=== PATIENT | male | born 1970 | race Caucasian/White ===

== ENCOUNTER → 2017-09-30 16:53 | Outpatient (CLI) | payer OTHER, SELFPAY ==
--- NOTE | 2017-09-30 16:59 | CT_ITS ---
STUDY: CT CHEST WITH CONTRAST REASON FOR EXAM: Male, 47 years old. Left-sided pulmonary nodule. RADIATION DOSAGE (If Supplied By Facility): CTDIvol = ( 18.62 ) mGy, DLP = ( 1903.87 ) mGycm TECHNIQUE: Transaxial imaging was performed following intravenous administration of 100 ml of Isovue 300 contrast material. Multiplanar coronal and sagittal images were reformatted. Individualized dose optimization techniques were used for this CT. COMPARISON: Prior chest CT exam of November 22, 2015 FINDINGS: Stable large calcified granuloma of the left lower lobe. Stable pleural-based lingular nodule. Stable left lower lobe nodule juxtaposed the chronically thickened oblique fissure. Stable linear opacities in the posterior left lower lobe. Multiple stable 2 mm nodules of the right middle lung zone. Normal heart and pericardium. Normal mediastinum. Calcified left hilar lymph nodes. Normal enhanced pulmonary arteries. Normal aorta arch and descending thoracic aorta. Minor degenerative changes of the thoracic spine. Large hillary hernia. CT/Chest WITH Contrast IMPRESSION: Stable calcified granuloma of the left lower lobe. Stable noncalcified nodule of the anterior left lower lobe, stable areas of linear scarring in the lingula and left lower lobe. Several tiny noncalcified nodules of the right middle lobe are stable. No acute pulmonary findings or changes. Large hiatal hernia. Electronically Signed: Nasrin Alatorre MD at 19:52 EDT , Service support ,
--- NOTE | 2017-09-30 17:00 | CT_ITS ---
STUDY: CT ABDOMEN AND PELVIS WITHOUT CONTRAST REASON FOR EXAM: Male, 47 years old. Left-sided pain and hematuria. RADIATION DOSAGE (If Supplied By Facility): CTDIvol = ( 18.62 ) mGy, DLP = ( 1903.87 ) mGycm TECHNIQUE: Transaxial images were obtained from the dome of the diaphragm to the symphysis pubis without oral contrast, and without intravenous contrast. Sagittal and coronal images were reconstructed. Individualized dose optimization techniques were used for this CT. COMPARISON: Prior abdominal CT exam of July 17, 2015 FINDINGS: Mild fatty liver with focal sparing around the yrn hepatis. Contracted gallbladder. Normal spleen. Normal pancreas. Normal bilateral adrenal glands. 1 mm nonobstructing stone in the lower mid pole of the right kidney without hydronephrosis or ureteral stones. Normal left kidney. 1 mm nonobstructing stone of the upper pole without hydronephrosis or ureteral stones. Large hiatal hernia. Normal small intestine. Diverticulosis of the colon without evidence of acute diverticulitis. The appendix is visualized and appears normal. Mild calcified plaque of the aorta. Normal inferior vena cava. Normal retroperitoneum. Normal urinary bladder. Bilateral fatty inguinal hernias, left larger than right. Minimal fatty umbilical hernia. Normal osseous structures. CT/Abdomen/Pelvis without Cont IMPRESSION: Fatty liver with focal sparing around the yrn hepatis. 1 mm nonobstructing stone in the midpole of the right kidney without hydronephrosis or ureteral stones. 1 mm nonobstructing stone in the upper pole of the left kidney without hydronephrosis or ureteral stones. Unremarkable urinary bladder. No acute bowel related findings. Negative for evidence of obstruction, perforation or inflammatory bowel changes. Diverticulosis without evidence of acute diverticulitis. A normal appendix is identified. Fatty liver. Large hiatal hernia. Electronically Signed: Nasrin Alatorre MD at 20:01 EDT , Service support ,
== END ==
PROVIDERS: Family Provider Family Medicine; PCP Family Medicine; Visit Provider Family Medicine
DX: R10.9 Unspecified abdominal pain (principal); R91.1 Solitary pulmonary nodule
CPT/HCPCS: 71260; 74176; Q9967

== ENCOUNTER → 2018-04-27 12:19 | Outpatient (CLI) | payer OTHER, SELFPAY ==
[2018-04-27 13:53] LABS: BUN 12 mg/dL (7-18); Creatinine, Serum 1.27 mg/dL (0.70-1.30); EST Glomerular Filtration Rate 64 mL/min (>60); Est Glom Filt Rate - Afr Amer 78 mL/min (>60)
[2018-05-10 05:31] LABS: PSA,Total - Annual Screen 0.96 ng/mL (0.00-4.00)
== END ==
PROVIDERS: Family Provider Family Medicine; PCP Family Medicine; Referring Provider Urology; Visit Provider Urology
DX: N20.0 Calculus of kidney (principal); Z12.5 Encounter for screening for malignant neoplasm of prostate; E29.0 Testicular hyperfunction
CPT/HCPCS: 36415; 82565; 84153; 84403; 84520; G0103

== ENCOUNTER → 2019-02-27 07:33 | Outpatient (CLI) | payer OTHER, SELFPAY ==
--- NOTE | 2019-02-27 07:42 | CT_ITS ---
STUDY: CT ABDOMEN AND PELVIS WITHOUT CONTRAST REASON FOR EXAM: Male, 48 years old. Abdominal pain RADIATION DOSAGE (If Supplied By Facility): CTDIvol = ( 20.69 ) mGy, DLP = ( 1080.26 ) mGycm TECHNIQUE: Transaxial images were obtained from the dome of the diaphragm to the symphysis pubis without oral contrast, and without intravenous contrast. Sagittal and coronal images were reconstructed. Individualized dose optimization techniques were used for this CT. COMPARISON: 09/30/2017 FINDINGS: The visualized lung bases are unremarkable. The visualized portions of the heart are within normal limits. There is decreased attenuation of the liver consistent with steatosis. Normal gallbladder and extrahepatic biliary system. Normal spleen. Normal pancreas. Normal bilateral adrenal glands. 2 mm nonobstructing stone in the midsection right kidney. No hydronephrosis, ureteral stone, or ureteral dilatation. Normal left kidney. Moderate size hiatal hernia. Normal small intestine. There are multiple colonic diverticula consistent with diverticulosis. The appendix is visualized and appears normal. Normal abdominal aorta. Normal inferior vena cava. Normal retroperitoneum. Normal urinary bladder. Normal abdominal wall. Normal osseous structures. CT/Abdomen/Pelvis without Cont IMPRESSION: 1. 2 mm nonobstructing stone in the midsection right kidney. 2. Fatty infiltration of the liver. 3. Moderate-sized hiatal hernia. 4. Sigmoid diverticulosis without diverticulitis. Electronically Signed: Juvenal Tatum MD at 8:56 EDT Tel , Service support ,
== END ==
PROVIDERS: Family Provider Family Medicine; PCP Family Medicine; Referring Provider Family Medicine; Visit Provider Family Medicine
DX: N20.0 Calculus of kidney (principal)
CPT/HCPCS: 74176

== ENCOUNTER → 2019-06-21 13:14 | Outpatient (CLI) | payer OTHER, SELFPAY ==
--- NOTE | 2019-06-21 13:18 | VDLE_ITS ---
Reason For Study: Pain LLE Procedure LEFT Exam performed in department. GSV is normal. A preliminary report was called and/or faxed CFV is compressible, spontaneous, phasic, to Adriana. competent, and demonstrates normal augmentation. FV is compressible, spontaneous, phasic, competent and demonstrates normal augmentation. POP V is compressible, spontaneous, phasic, competent and demonstrates normal augmentation. T/P Trunk is compressible. PTV is compressible. LT PerV is compressible. Interpretation Summary Deep veins of the left lower extremity are patent and compressible segmentally. There is no evidence of left lower extremity deep vein thrombosis. Valvular competence appears intact within the proximal deep venous system on the left . The left great saphenous vein appears patent and compressible segmentally. Ordering Physician: Kailey Wright Referring Physician: Jonnathan Palma Performed By: Sierra Nesbitt RVT
== END ==
PROVIDERS: Family Provider Family Medicine; PCP Family Medicine; Referring Provider Physician Assistant; Visit Provider Physician Assistant
DX: M79.662 Pain in left lower leg (principal)
CPT/HCPCS: 93971

== ENCOUNTER → 2019-08-01 14:16 | Outpatient (CLI) | payer OTHER, SELFPAY ==
[2019-08-01 15:40] LABS: PSA,Total- Diagnostic 0.98 ng/mL (0.0-4.0); Prolactin 5.4 ng/mL
== END ==
LOC: LAB.FUTURE 14:19 → LAB 14:31
PROVIDERS: Family Provider Family Medicine; PCP Family Medicine; Referring Provider Urology; Visit Provider Urology
DX: E29.1 Testicular hypofunction (principal); N40.1 Benign prostatic hyperplasia with lower urinary tract symptoms
CPT/HCPCS: 36415; 84146; 84153; 84403

== ENCOUNTER → 2019-11-14 14:08 | Outpatient (CLI) | payer OTHER, SELFPAY ==
[2019-11-14 14:54] LABS: Absolute Lymphocyte Count 1.26 X10^3/uL (0.83-4.51); Absolute Neutrophil Count 3.1 X10^3/uL (2.0-7.7); Basophil# 0.03 X10^3/uL; Basophil% 0.6 % (0-1); Eosinophil# 0.06 X10^3/uL; Eosinophils% 1.2 % (0-5); Hematocrit 37.4 % (40-54); Hemoglobin 12.7 g/dL (13.0-16.5); Lymphocyte # 1.26 X10^3/ul (4.0); Lymphocyte % 25.6 % (19-41); Mean Corpuscular Hgb 30.6 pg (27.0-32.0); Mean Corpuscular Volume 90.1 fL (80-94); Mean Platelet Vol. 9.9 fl (6.2-12.0); Monocyte# 0.44 X10^3/uL; Monocyte% 8.9 % (0-10); NRBC Flagged by Analyzer 0 % (0-5); Neutrophil # 3.12 X10^3/uL (2.7-7.7); Neutrophil % 63.5 % (47-70); Platelet Count 266 K/mm3 (150-450); RBC Distribution Width CV 13.1 % (11.6-14.6); RBC Distribution Width SD 42.6 fl (35.1-43.9); Red Blood Count 4.15 M/mm3 (4.6-6.2); White Blood Count 4.9 K/mm3 (4.4-11.0)
[2019-11-14 15:36] LABS: PTHIN 44.3 pg/mL (18.4-80.1)
[2019-11-14 15:40] LABS: Vitamin B12 448 pg/mL (211-911); Vitamin D,25 Hydroxy 31.1 ng/mL
[2019-11-14 15:49] LABS: BUN 22 mg/dL (7-18); Creatinine, Serum 1.16 mg/dL (0.70-1.30); Glucose 133 mg/dL (74-106)
[2019-11-14 15:50] LABS: ALB/GLOB Ratio 1.3 RATIO (0.9-2.4); AST(SGOT) 24 U/L (15-37); Alanine Aminotransfer ALT/SGPT 22 U/L (16-61); Albumin, Serum 3.6 g/dL (3.2-5.0); Alkaline Phosphatase 71 U/L (45-117); Anion Gap 6 (5-15); Calcium,Total 8.3 mg/dL (8.5-10.1); Chloride 110 mmol/L (98-107); EST Glomerular Filtration Rate 71 mL/min (>60); Est Glom Filt Rate - Afr Amer 86 mL/min (>60); Ferritin 198 ng/mL (26-388); Globulin 2.8 g/dL (2.2-4.2); Iron 87 ug/dL (65-175); Iron Binding Capacity,Total 294 ug/dL (250-450); Potassium 4.3 mmol/L (3.5-5.1); Protein, Total 6.4 g/dL (6.4-8.2); Sodium Level 141 mmol/L (136-145)
[2019-11-19 06:54] LABS: Vitamin B1, Thiamine 155.6 nmol/L (66.5-200.0)
[2019-11-19 09:22] LABS: Transferrin 217 mg/dL (177-329); Vitamin A, Retinol 46.9 ug/dL (20.1-62.0)
== END ==
PROVIDERS: PCP Family Medicine
DX: E55.9 Vitamin D deficiency, unspecified (principal); D53.9 Nutritional anemia, unspecified; Z98.84 Bariatric surgery status; E66.9 Obesity, unspecified; Z71.89 Other specified counseling; Z71.3 Dietary counseling and surveillance; Z09 Encounter for follow-up examination after completed treatment for conditions other than malignant neoplasm
CPT/HCPCS: 36415; 80053; 82306; 82607; 82728; 82746; 83540; 83550; 83970; 84425; 84466; 84590; 85025

== ENCOUNTER → 2020-01-01 11:57 | Outpatient (CLI) | payer OTHER, SELFPAY | PROVIDERS: PCP Family Medicine; Visit Provider Internal Medicine Gastroenterology | DX: Z11.59 Encounter for screening for other viral diseases (principal) | CPT/HCPCS: 87635; G2023; U0003 ==

== ENCOUNTER → 2020-05-22 12:38 | Outpatient (CLI) | payer OTHER, SELFPAY ==
[2020-05-22 13:20] LABS: Absolute Lymphocyte Count 1.07 X10^3/uL (0.83-4.51); Absolute Neutrophil Count 3.4 X10^3/uL (2.0-7.7); Basophil# 0.02 X10^3/uL; Basophil% 0.4 % (0-1); Eosinophil# 0.06 X10^3/uL; Eosinophils% 1.2 % (0-5); Hematocrit 41.9 % (40-54); Hemoglobin 14.5 g/dL (13.0-16.5); Lymphocyte # 1.07 X10^3/ul (4.0); Lymphocyte % 22.2 % (19-41); Mean Corp Hgb Conc 34.6 g/dL (32-36); Mean Corpuscular Hgb 31.1 pg (27.0-32.0); Mean Corpuscular Volume 89.9 fL (80-94); Mean Platelet Vol. 9.6 fl (6.2-12.0); Monocyte# 0.29 X10^3/uL; NRBC Flagged by Analyzer 0 % (0-5); Neutrophil # 3.37 X10^3/uL (2.7-7.7); Platelet Count 262 K/mm3 (150-450); RBC Distribution Width CV 12.4 % (11.6-14.6); RBC Distribution Width SD 40.3 fl (35.1-43.9); Red Blood Count 4.66 M/mm3 (4.6-6.2); White Blood Count 4.8 K/mm3 (4.4-11.0)
[2020-05-22 13:45] LABS: PTHIN 44.6 pg/mL (18.4-80.1)
[2020-05-22 13:50] LABS: Vitamin B12 458 pg/mL (211-911); Vitamin D,25 Hydroxy 25.9 ng/mL
[2020-05-22 14:24] LABS: ALB/GLOB Ratio 1.4 RATIO (0.9-2.4); AST(SGOT) 20 U/L (15-37); Alanine Aminotransfer ALT/SGPT 28 U/L (16-61); Albumin, Serum 4.1 g/dL (3.2-5.0); Alkaline Phosphatase 85 U/L (45-117); Anion Gap 3 (5-15); BUN 17 mg/dL (7-18); BUN/Creat Ratio 16.5 RATIO (10-20); Bilirubin, Direct 0.31 mg/dL (0.00-0.30); Calcium,Total 9.2 mg/dL (8.5-10.1); Chloride 107 mmol/L (98-107); Cholesterol 134 mg/dL (200); Creatinine, Serum 1.03 mg/dL (0.70-1.30); EST Glomerular Filtration Rate 81 mL/min (>60); Est Glom Filt Rate - Afr Amer 98 mL/min (>60); Ferritin 186 ng/mL (26-388); Glucose 102 mg/dL (74-106); High Density Lipoprotein 45 mg/dL; Iron 73 ug/dL (65-175); Iron Binding Capacity,Total 329 ug/dL (250-450); Potassium 4.3 mmol/L (3.5-5.1); Protein, Total 7.1 g/dL (6.4-8.2); Sodium Level 139 mmol/L (136-145); Triglycerides 66 mg/dL; Very Low Density Lipoprotein 13 mg/dL (5-40)
[2020-05-31 12:11] LABS: Vitamin B1, Thiamine 118.2 nmol/L (66.5-200.0)
[2020-05-31 16:40] LABS: Transferrin 248 mg/dL (177-329); Vitamin A, Retinol 45.3 ug/dL (20.1-62.0)
== END ==
PROVIDERS: PCP Family Medicine
DX: R19.7 Diarrhea, unspecified (principal)
CPT/HCPCS: 36415; 80048; 80061; 80076; 82306; 82607; 82728; 82746; 83036; 83540; 83550; 83970; 84156; 84403; 84425; 84443; 84466; 84590; 85025

== ENCOUNTER 2020-09-07 18:57 | Emergency (ER) | payer OTHER, SELFPAY ==
[2020-09-07 18:58] VITALS: BP 147/96; PULSE 96; RESP 18; TEMP 36.6; O2SAT 98; BMI 30.5
[2020-09-07 19:06] VITALS: O2SAT 98
--- NOTE | 2020-09-07 19:14 | EKG12_ITS ---
Test Reason : CP Blood Pressure : / mmHG Vent. Rate : 090 BPM Atrial Rate : 090 BPM P-R Int : 156 ms QRS Dur : 078 ms QT Int : 356 ms P-R-T Axes : 012 015 008 degrees QTc Int : 435 ms Normal sinus rhythm Normal ECG Confirmed by ABDIRIZAK SAVAGE, JOSEPH ([id number]), science editor MELISSA SHEN ([id number]) on 09/09/2020 10:08:46 AM Referred By: Confirmed By:JOSEPH REVELES MD
--- NOTE | 2020-09-07 19:15 | ED.DCSUM_ITS ---
History of Present Illness Chief Complaint: Shortness of Breath Informant: Patient Narrative: 50-year-old male presenting to the emergency department with a left chest ache, cough with occasional sputum production, and mild dyspnea. States he has felt it for the past several days. He has had some sores in his mouth that have been bothering him. He states he has had malaise slight headache loose stool. No fevers. He has no known lung conditions but does state that about 6 years ago he had a gastric bypass surgery that unfortunately resulted in having a chest tube for 2 weeks. During that timeframe he reportedly also had a cardiac arrest and has had normal follow-up with cardiology. He is a non-smoker. His has been ill but tested negative for Covid. Past Medical History - Allergies and Home Meds Allergies/Adverse Reactions: Allergies No Known Allergies Allergy (Verified 09/07/20 19:00) Primary Care Physician: Jonnathan Palma MD [Primary Care Provider] - As Needed Past Medical History: - - Insomnia hiatal hernia prior cardiac arrest Surgical History: gastric bypass, - - Hiatal hernia repair Lives: Spouse/ Significant Other Smoking Status: Never smoker Alcohol: None Drugs: None Review of Systems General: Reports: Malaise. Denies: Chills, Fever, Sweats Eyes: Denies: Visual changes - bilaterally, Diplopia ENT: Denies: Rhinorrhea, Sore throat Cardiovascular: Reports: Chest pain. Denies: Palpitations Respiratory: Reports: Dyspnea, Cough, Sputum. Denies: Dyspnea on exertion Gastrointestinal: Reports: Diarrhea. Denies: Abdominal pain, Nausea, Vomiting, Melena, Hematochezia Genitourinary: Denies: Dysuria, Hematuria, Frequency Musculoskeletal: Denies: Back pain, Extremity Pain Skin: Denies: Rash, Wounds Neurological: Reports: Headache. Denies: Weakness, Numbness Physical Exam Vital Signs/Narrative: Vital Signs Temp Pulse Resp BP Pulse Ox 09/07/20 18:58 97.9 F 96 18 147/96 H 98 Inital Vital Signs reviewed: Yes General: Well nourished, Well developed, No Acute Distress Head: Normocephalic, Atraumatic Eyes: Perrl, EOMI ENT: Moist mucous membranes, No rhinorrhea Neck: Supple, Nontender Cardiovascular: Regular rate, Regular rhythm, No murmurs Respiratory: No distress, CTA bilaterally, Chest nontender Abdomen: Soft, Nontender, Nondistended, Normal bowel sounds Back: Nontender, Normal Inspection Extremities: Nontender, No edema Skin: Normal color, No rash Neurological: Alert, Oriented x3, Cranial nerves II-XII grossly intact, Normal Strength, Normal Sensation Psychological: Normal affect, Normal Mood Diagnostic/Tx/Re-eval Clinical Impression(s) from Imaging Studies Chest X-Ray 09/07/20 19:30 IMPRESSION: No acute cardiopulmonary findings or changes. Stigmata of old granulomatous disease. Electronically Signed: Nasrin Alatorre MD at 19:50 EST , Service support , Laboratory Last Values WBC 3.8 K/mm3 (4.4-11.0) L 09/07/20 19:15 RBC 4.31 M/mm3 (4.6-6.2) L 09/07/20 19:15 Hgb 13.6 g/dL (13.0-16.5) 09/07/20 19:15 Hct 38.2 % (40-54) L 09/07/20 19:15 MCV 88.6 fL (80-94) 09/07/20 19:15 MCH 31.6 pg (27.0-32.0) 09/07/20 19:15 MCHC 35.6 g/dL (32-36) 09/07/20 19:15 RDW Std Deviation 39.5 fl (35.1-43.9) 09/07/20 19:15 RDW Coeff of Christina 12.1 % (11.6-14.6) 09/07/20 19:15 Plt Count 167 K/mm3 (150-450) 09/07/20 19:15 MPV 9.7 fl (6.2-12.0) 09/07/20 19:15 Immature Gran % (Auto) 0.000 % (0.0-0.9) 09/07/20 19:15 Neut % (Auto) 74.1 % (47-70) H 09/07/20 19:15 Lymph % (Auto) 15.4 % (19-41) L 09/07/20 19:15 [place] % (Auto) 10.2 % (0-10) H 09/07/20 19:15 Eos % (Auto) 0.0 % (0-5) 09/07/20 19:15 Baso % (Auto) 0.3 % (0-1) 09/07/20 19:15 Absolute Neuts (auto) 2.9 X10^3/uL (2.0-7.7) 09/07/20 19:15 Absolute Lymphs (auto) 0.59 X10^3/uL (0.83-4.51) L 09/07/20 19:15 Nucleated RBC % 0 % (0-5) 09/07/20 19:15 Differential Comment SCANNED 09/07/20 19:15 Diff Path Review November09/07/20 19:15 D-Dimer Quant (PE/DVT) < 0.27 FEU/ug/m (0.27-0.49) L 09/07/20 19:15 Sodium 137 mmol/L (136-145) 09/07/20 19:15 Potassium 3.9 mmol/L (3.5-5.1) 09/07/20 19:15 Chloride 103 mmol/L (98-107) 09/07/20 19:15 Carbon Dioxide 28.0 mmol/L (21.0-32.0) 09/07/20 19:15 Anion Gap 6 (5-15) 09/07/20 19:15 BUN 24 mg/dL (7-18) H 09/07/20 19:15 Creatinine 1.15 mg/dL (0.70-1.30) 09/07/20 19:15 Estim Creat Clear Calc 71.05 ml/min 09/07/20 19:15 Est GFR (MDRD) Af Amer 86 mL/min (>60) 09/07/20 19:15 Est GFR (MDRD) Non-Af 71 mL/min (>60) 09/07/20 19:15 BUN/Creatinine Ratio 20.9 RATIO (10-20) H 09/07/20 19:15 Glucose 108 mg/dL (74-106) H 09/07/20 19:15 Lactic Acid 1.0 mmol/L (0.4-1.9) 09/07/20 19:15 Calcium 8.3 mg/dL (8.5-10.1) L 09/07/20 19:15 Total Bilirubin 0.70 mg/dL (0.20-1.00) 09/07/20 19:15 AST 27 U/L (15-37) 09/07/20 19:15 ALT 21 U/L (16-61) 09/07/20 19:15 Alkaline Phosphatase 86 U/L (45-117) 09/07/20 19:15 Troponin I 0.022 ng/mL (<0.045) 09/07/20 19:15 Total Protein 7.0 g/dL (6.4-8.2) 09/07/20 19:15 Albumin 3.8 g/dL (3.2-5.0) 09/07/20 19:15 Globulin 3.2 g/dL (2.2-4.2) 09/07/20 19:15 Albumin/Globulin Ratio 1.2 RATIO (0.9-2.4) 09/07/20 19:15 - EKG Initial EKG Interpretation: Sinus Rhythm - EKG demonstrates a normal sinus rhythm at a rate of 90 without ectopy or concerning features of ACS. - Medical Decision Making Patient is Covid POSITIVE. Troponin negative and EKG shows no ACS features. He has a slight leukopenia consistent with Covid 19. Patient chest x-ray shows no obvious infiltrative changes. His vital signs are normal with a pulse ox of 97%. I believe the patient can be discharged home. I am starting him on Decadron and albuterol MDI with spacer. The patient will receive his first dose here. In reviewing the inclusion exclusion criteria for antibody infusion it appears that he does not currently qualify. ED Disposition - Plan for ED Patient: Disposition: Home or Assisted Living Diagnosis: COVID-19, Chest pain, Dyspnea Instructions: Coronavirus Disease 2019 (COVID-19): Caring for Yourself or Others Prescriptions: Dexamethasone [Decadron] 6 mg PO DAILY 4 Days #4 tab Prescription Printed Referrals: Jonnathan Palma MD [Primary Care Provider] - As Needed
--- NOTE | 2020-09-07 19:30 | RAD_ITS ---
STUDY: X-RAY CHEST REASON FOR EXAM: Male, 50 years old. cough TECHNIQUE: 1 view apical lordotic COMPARISON: Prior chest radiograph of 05/24/[address] exam of 09/30/2017 FINDINGS: The lungs are clear and expanded. Large calcified granuloma left lower lobe. There is no demonstrated pleural abnormality. Normal size heart. Normal mediastinum and hillary. Normal visualized pulmonary arteries. Normal visualized aortic arch and descending thoracic aorta. Normal visualized thoracic spine. Normal visualized ribs, clavicles, and shoulders. There is no demonstrated abnormality of the visualized soft tissue structures of the upper abdomen. RAD/Chest 1 View (Portable) IMPRESSION: No acute cardiopulmonary findings or changes. Stigmata of old granulomatous disease. Electronically Signed: Nasrin Alatorre MD at 19:50 EST , Service support ,
[2020-09-07 19:35] LABS: Absolute Lymphocyte Count 0.59 X10^3/uL (0.83-4.51); Absolute Neutrophil Count 2.9 X10^3/uL (2.0-7.7); Basophil# 0.01 X10^3/uL; Basophil% 0.3 % (0-1); Hematocrit 38.2 % (40-54); Hemoglobin 13.6 g/dL (13.0-16.5); Lymphocyte # 0.59 X10^3/ul (4.0); Lymphocyte % 15.4 % (19-41); Mean Corp Hgb Conc 35.6 g/dL (32-36); Mean Corpuscular Hgb 31.6 pg (27.0-32.0); Mean Corpuscular Volume 88.6 fL (80-94); Mean Platelet Vol. 9.7 fl (6.2-12.0); Monocyte# 0.39 X10^3/uL; Monocyte% 10.2 % (0-10); NRBC Flagged by Analyzer 0 % (0-5); Neutrophil # 2.85 X10^3/uL (2.7-7.7); Neutrophil % 74.1 % (47-70); POSITIVE DIFFERENTIAL YES; Platelet Count 167 K/mm3 (150-450); RBC Distribution Width CV 12.1 % (11.6-14.6); RBC Distribution Width SD 39.5 fl (35.1-43.9); Red Blood Count 4.31 M/mm3 (4.6-6.2); White Blood Count 3.8 K/mm3 (4.4-11.0)
[2020-09-07 19:39] LABS: Differential Indicated SCAN CRITERIA MET
[2020-09-07 19:46] LABS: D-Dimer Quantitative (DVT/PE) < 0.27 FEU/ug/m (0.27-0.49)
[2020-09-07 19:50] LABS: ALB/GLOB Ratio 1.2 RATIO (0.9-2.4); AST(SGOT) 27 U/L (15-37); Alanine Aminotransfer ALT/SGPT 21 U/L (16-61); Albumin, Serum 3.8 g/dL (3.2-5.0); Alkaline Phosphatase 86 U/L (45-117); Anion Gap 6 (5-15); BUN 24 mg/dL (7-18); BUN/Creat Ratio 20.9 RATIO (10-20); Calcium,Total 8.3 mg/dL (8.5-10.1); Chloride 103 mmol/L (98-107); Creatinine, Serum 1.15 mg/dL (0.70-1.30); EST Glomerular Filtration Rate 71 mL/min (>60); Est Glom Filt Rate - Afr Amer 86 mL/min (>60); Estimated Creatinine Clearance 71.05 ml/min; Globulin 3.2 g/dL (2.2-4.2); Glucose 108 mg/dL (74-106); Potassium 3.9 mmol/L (3.5-5.1); Sodium Level 137 mmol/L (136-145)
[2020-09-07 20:00] VITALS: BP 143/96; PULSE 89; RESP 12; TEMP 36.6; O2SAT 96
[2020-09-07 20:06] LABS: Differential Comment SCANNED
[2020-09-07 21:09] VITALS: BP 125/78; PULSE 82; RESP 14; O2SAT 96
[2020-09-07] MEDS: dexAMETHasone 4 MG Tablet 6 MG PO (21:10)
[2020-09-07] MEDS: INHALER, ASSIST DEVICES 1 EACH SPACER INHALATION (21:12)
[2020-09-09 14:45] LABS: Pathologist Review Reviewed
== END 2020-09-07 21:28 | disposition home or self-care (01) ==
PROVIDERS: Emergency Provider Emergency Medicine; PCP Family Medicine
DX: U07.1 COVID-19 (principal); R07.9 Chest pain, unspecified; R06.00 Dyspnea, unspecified; Z86.74 Personal history of sudden cardiac arrest; Z98.84 Bariatric surgery status
CPT/HCPCS: 71045; 80053; 83605; 84484; 85025; 85379; 87040; 87426; 93005; 99285; A4216

== ENCOUNTER → 2020-09-30 09:21 | Outpatient (CLI) | payer OTHER, SELFPAY ==
[2020-09-07 18:58] VITALS: BMI 30.5
[2020-09-30 09:38] LABS: Hematocrit 39.7 % (40-54); Hemoglobin 13.2 g/dL (13.0-16.5); Mean Corp Hgb Conc 33.2 g/dL (32-36); Mean Corpuscular Hgb 30.8 pg (27.0-32.0); Mean Corpuscular Volume 92.5 fL (80-94); Mean Platelet Vol. 9.2 fl (6.2-12.0); Platelet Count 260 K/mm3 (150-450); RBC Distribution Width CV 13.2 % (11.6-14.6); RBC Distribution Width SD 44.1 fl (35.1-43.9); Red Blood Count 4.29 M/mm3 (4.6-6.2); White Blood Count 3.7 K/mm3 (4.4-11.0)
[2020-09-30 10:05] LABS: Anion Gap 5 (5-15); BUN 17 mg/dL (7-18); BUN/Creat Ratio 15.5 RATIO (10-20); Calcium,Total 9.1 mg/dL (8.5-10.1); Chloride 105 mmol/L (98-107); EST Glomerular Filtration Rate 75 mL/min (>60); Est Glom Filt Rate - Afr Amer 91 mL/min (>60); Glucose 103 mg/dL (74-106); PSA,Total - Annual Screen 1.14 ng/mL (0.00-4.00); Sodium Level 141 mmol/L (136-145)
== END ==
PROVIDERS: PCP Family Medicine; Referring Provider Urology; Visit Provider Urology
DX: E29.1 Testicular hypofunction (principal)
CPT/HCPCS: 36415; 80048; 84153; 84403; 85027; G0103

== ENCOUNTER 2020-11-17 10:18 | Emergency (ER) | payer OTHER, SELFPAY ==
[2020-11-17 10:20] VITALS: BP 164/89; PULSE 60; RESP 17; TEMP 36.7; O2SAT 98; BMI 30.2
--- NOTE | 2020-11-17 10:34 | CT_ITS ---
STUDY: CT ABDOMEN AND PELVIS WITHOUT CONTRAST REASON FOR EXAM: Male, 50 years old. Kidney Stone RADIATION DOSAGE (If Supplied By Facility): CTDIvol = ( 9.12 ) mGy, DLP = ( 453.37 ) mGycm TECHNIQUE: Transaxial images were obtained from the dome of the diaphragm to the symphysis pubis without oral contrast, and without intravenous contrast. Sagittal and coronal images were reconstructed. Individualized dose optimization techniques were used for this CT. COMPARISON: 02/27/2019 FINDINGS: The visualized lung bases are unremarkable. The visualized portions of the heart are within normal limits. Normal liver. Normal gallbladder and extrahepatic biliary system. Normal spleen. Normal pancreas. Normal bilateral adrenal glands. 3 mm obstructing stone at the right ureterovesical junction with moderate ureteral dilatation, hydronephrosis, and perinephric edema. Normal left kidney. Status post gastric surgery, possibly gastric bypass per Normal small intestine. There are multiple colonic diverticula consistent with diverticulosis. The appendix is visualized and appears normal. Normal abdominal aorta. Normal inferior vena cava. Normal retroperitoneum. Normal urinary bladder. There is a small umbilical hernia containing fat. Normal osseous structures. CT/Abdomen/Pelvis without Cont IMPRESSION: 3 mm obstructing stone of the right ureteral vesicle junction with moderate ureteral dilatation and hydronephrosis. Electronically Signed: Juvenal Tatum MD at 11:26 EDT Tel , Service support ,
--- NOTE | 2020-11-17 10:34 | ED.VIS.GI ---
HPI HPI - GI History of Present Illness Chief Complaint: Abd Pain Informant: patient Abdominal Pain/Flank Pain Onset: Today Narrative Narrative: 50-year-old male presenting with right flank pain. Patient states this started this morning. He has pain in his right low back and right lower quadrant. He states it occasionally radiates to his testicle. He denies dysuria or hematuria. He complains of nausea with no vomiting. Denies fever. He states he had Covid in August and had low blood counts at that time. He is awaiting recheck for this. Denies other complaints. Prior similar symptoms: Yes Recent Illness/Hospitalization: No PFSH PFSH Home Medications ropinirole 0.25 mg PO QHS 09/07/20 [History Last Taken Unknown] tadalafil 5 mg PO DAILY 09/07/20 [History Last Taken Unknown] testosterone 4 pump TOPICAL DAILY 09/07/20 [History Last Taken Unknown] zolpidem 12.5 mg PO QHS 09/07/20 [History Last Taken Unknown] hydrocodone-acetaminophen 1 tab PO Q6H PRN PRN 3 Days #10 tablet 11/17/20 [Rx Last Taken Unknown] ondansetron 4 mg PO Q8H PRN PRN #10 tab 11/17/20 [Rx Last Taken Unknown] Allergy/AdvReac Type Severity Reaction Status Date / Time No Known Allergies Allergy Verified 11/17/20 10:19 Social History Smoking Status: Never smoker ROS ROS ED Constitutional Constitutional ED: Denies fever(s) Eyes Eyes: Denies change in vision ENT ENT ED: Denies rhinorrhea or sore throat Cardiovascular Cardiovascular: Denies chest pain or palpitations Respiratory/Chest Respiratory/Chest: Denies cough or dyspnea Gastrointestinal Gastrointestinal: Reports abdominal pain and nausea; Denies diarrhea or vomiting Genitourinary Genitourinary ED: Denies dysuria or hematuria Musculoskeletal Musculoskeletal: Denies myalgias Integumentary Denies rash Neurologic Neurologic: Denies headache(s) EXAM Physical Exam Const Vital Signs: 11/17/20 10:20 Temperature 98.1 F Temperature Source Oral Pulse Rate 60 Respiratory Rate 17 Blood Pressure 164/89 H Blood Pressure Mean 114 Pulse Ox 98 Oxygen Delivery Method Room Air Positive well nourished and well developed General Appearance ED: well developed HEENT Reports normocephalic and head/scalp atraumatic Eyes PERRL and EOMs intact bilaterally Neck supple General: Negative for tenderness Chest Wall inspection of chest normal Resp normal respiratory effort and clear to auscultation bilaterally Cardio regular rate and regular rhythm GI non-distended GI Narrative: Mild right lower quadrant tenderness with no guarding or rebound Palpation: soft; Negative for guarding or rebound tenderness present no CVA tenderness Narrative: No testicular tenderness. Normal lie Back/Spine no CVA tenderness Extremity normal to inspection Neuro oriented x3 Sensorium / Orientation: alert Psych mental status grossly normal MDM MDM MDM Narrative Medical decision making narrative: Patient was given morphine, Zofran, IV fluids. CT flank shows 3 mm stone at the right UVJ. On reevaluation, patient is resting comfortably. He is given prescription for [place] and Zofran. Advised to follow-up with Dr. Barahona. Advised return to ED for worsening complaints. Lab Data Attestation: I reviewed the patient's lab results. Labs: Laboratory Results - last 24 hr 11/17/20 11/17/20 11/17/20 10:44 10:49 10:49 WBC 10.2 RBC 4.58 L Hgb 13.8 Hct 40.7 MCV 88.9 MCH 30.1 MCHC 33.9 RDW Std Deviation 41.7 RDW Coeff of Christina 13.1 Plt Count 226 MPV 9.4 Immature Gran % (Auto) 0.400 Neut % (Auto) 88.7 H Lymph % (Auto) 5.3 L [place] % (Auto) 5.4 Eos % (Auto) 0.1 Baso % (Auto) 0.1 Absolute Neuts (auto) 9.1 H Absolute Lymphs (auto) 0.54 L Nucleated RBC % 0 Differential Comment SCANNED Sodium 141 Potassium 4.3 Chloride 106 Carbon Dioxide 29.0 Anion Gap 6 BUN 26 H Creatinine 1.32 H Estim Creat Clear Calc 61.90 Est GFR (MDRD) Af Amer 74 Est GFR (MDRD) Non-Af 61 BUN/Creatinine Ratio 19.7 Glucose 134 H Calcium 9.0 Urine Color Yellow Urine Clarity Clear Urine pH 6.5 Ur Specific [place] 1.015 Urine Protein 15 H Urine Glucose (UA) Normal Urine Ketones Negative Urine Occult Blood 150 H Urine Nitrite Negative Urine Bilirubin Negative Urine Urobilinogen Normal Ur Leukocyte Esterase 25 H Urine RBC 25-50 SEEN Urine WBC 0-5 SEEN Ur Squamous Epith Cells 0 SEEN Urine Bacteria 0 SEEN Hyaline Casts 0-5 SEEN Urine Mucus 1+ Radiography Diagnostic Testing: Radiology Impression Abdomen/Pelvis CT 11/17/20 10:34 IMPRESSION: 3 mm obstructing stone of the right ureteral vesicle junction with moderate ureteral dilatation and hydronephrosis. Electronically Signed: Juvenal Tatum MD at 11:26 EDT Tel , Service support , Discharge Plan Triage Chief Complaint: Abd Pain ED Provider: Lelia Iverson Dx/Rx/DC Orders Clinical Impression: Urolithiasis Instructions: ED Kidney Stone w/ Colic Prescriptions: New hydrocodone-acetaminophen [hydrocodone-acetaminophen] 1 TABLET tablet 1 tab PO Q6H PRN PRN (Reason: Pain) 3 Days Qty: 10 RF: 0 ondansetron [ondansetron] 4 MG tablet 4 mg PO Q8H PRN PRN (Reason: Nausea) Qty: 10 RF: 0 No Action ropinirole 0.25 MG tablet 0.25 mg PO QHS RF: 0 tadalafil 5 MG tablet 5 mg PO DAILY RF: 0 zolpidem 12.5 MG tablet,ext release multiphase 12.5 mg PO QHS RF: 0 testosterone 75 GM gel in metered-dose pump 4 pump TOPICAL DAILY RF: 0 Primary Care Provider: Jonnathan Palma Referrals: Jonnathan Palma MD [Primary Care Provider] - Marcos Barahona MD [STAFF PHYSICIAN] - Disposition Disposition: Home, self care
[2020-11-17] MEDS: Morphine 4 MG/ML Syringe IV (10:49)
[2020-11-17] MEDS: Ondansetron 4 MG/2 ML Vial IV (10:49)
[2020-11-17 10:58] LABS: Bacteria 0 SEEN /hpf (None Seen); Squamous Epithelial Cells - UA 0 SEEN /hpf (0-5)
[2020-11-17 11:03] LABS: Absolute Lymphocyte Count 0.54 X10^3/uL (0.83-4.51); Absolute Neutrophil Count 9.1 X10^3/uL (2.0-7.7); Basophil# 0.01 X10^3/uL; Basophil% 0.1 % (0-1); Eosinophil# 0.01 X10^3/uL; Eosinophils% 0.1 % (0-5); Hematocrit 40.7 % (40-54); Hemoglobin 13.8 g/dL (13.0-16.5); Lymphocyte # 0.54 X10^3/ul (0.83-4.51); Lymphocyte % 5.3 % (19-41); Mean Corp Hgb Conc 33.9 g/dL (32-36); Mean Corpuscular Hgb 30.1 pg (27.0-32.0); Mean Corpuscular Volume 88.9 fL (80-94); Mean Platelet Vol. 9.4 fl (6.2-12.0); Monocyte# 0.55 X10^3/uL; Monocyte% 5.4 % (0-10); NRBC Flagged by Analyzer 0 % (0-5); Neutrophil # 9.05 X10^3/uL (2.7-7.7); Neutrophil % 88.7 % (47-70); POSITIVE DIFFERENTIAL YES; Platelet Count 226 K/mm3 (150-450); RBC Distribution Width CV 13.1 % (11.6-14.6); RBC Distribution Width SD 41.7 fl (35.1-43.9); Red Blood Count 4.58 M/mm3 (4.6-6.2); White Blood Count 10.2 K/mm3 (4.4-11.0)
[2020-11-17 11:10] LABS: Color, Urine Yellow (Yellow); Glucose, Dipstick Normal (Normal); Ketone-Dipstick Negative (Negative); Leukocyte Esterase-Dipstick 25 /ul (Negative); Nitrite-Dipstick Negative (Negative); Occult Blood-Urine 150 /ul (Negative); Protein-Dipstick 15 mg/dl (Negative); Specific Gravity, Urine 1.015 (1.002-1.030); Urine Bilirubin Dipstick Negative (Negative); Urine Clarity Clear (Clear); Urine Urobilinogen Normal (Normal); Urine pH 6.5 (5.0 - 8.0)
[2020-11-17 11:10] LABS: Differential Indicated SCAN CRITERIA MET
[2020-11-17 11:13] LABS: Anion Gap 6 (5-15); BUN 26 mg/dL (7-18); BUN/Creat Ratio 19.7 RATIO (10-20); Chloride 106 mmol/L (98-107); Creatinine, Serum 1.32 mg/dL (0.70-1.30); EST Glomerular Filtration Rate 61 mL/min (>60); Est Glom Filt Rate - Afr Amer 74 mL/min (>60); Glucose 134 mg/dL (74-106); Potassium 4.3 mmol/L (3.5-5.1); Sodium Level 141 mmol/L (136-145)
[2020-11-17] MEDS: 0.9% Normal Saline 1,000 ML 999 ML IV (11:38)
[2020-11-17 11:48] LABS: Differential Comment SCANNED
[2020-11-17 11:55] LABS: Hyaline Cast 0-5 SEEN /lpf (0-5); Mucous, Urine 1+ /hpf (<or=2+); Red Blood Cells-Urine 25-50 SEEN /hpf (0-5); White Blood Cells 0-5 SEEN /hpf (0-5)
[2020-11-17 12:31] VITALS: BP 158/93; PULSE 61; RESP 18; O2SAT 100
== END 2020-11-17 12:33 | disposition home or self-care (01) ==
PROVIDERS: Emergency Provider Emergency Medicine; PCP Family Medicine
DX: N20.9 Urinary calculus, unspecified (principal)
CPT/HCPCS: 74176; 80048; 81001; 85025; 96374; 96375; 99284; J7030; A4216; J2405

== ENCOUNTER → 2020-12-16 15:44 | Outpatient (CLI) | payer OTHER, SELFPAY ==
[2020-11-17 10:20] VITALS: BMI 30.2
[2020-12-16 17:29] LABS: Absolute Lymphocyte Count 1.25 X10^3/uL (0.83-4.51); Absolute Neutrophil Count 4.8 X10^3/uL (2.0-7.7); Basophil# 0.03 X10^3/uL; Basophil% 0.4 % (0-1); Eosinophil# 0.12 X10^3/uL; Eosinophils% 1.8 % (0-5); Hemoglobin 13.5 g/dL (13.0-16.5); Lymphocyte # 1.25 X10^3/ul (0.83-4.51); Lymphocyte % 18.5 % (19-41); Mean Corp Hgb Conc 34.6 g/dL (32-36); Mean Corpuscular Hgb 30.3 pg (27.0-32.0); Mean Corpuscular Volume 87.6 fL (80-94); Mean Platelet Vol. 10.3 fl (6.2-12.0); Monocyte# 0.53 X10^3/uL; Monocyte% 7.9 % (0-10); NRBC Flagged by Analyzer 0 % (0-5); Neutrophil % 71.1 % (47-70); Platelet Count 233 K/mm3 (150-450); RBC Distribution Width CV 12.7 % (11.6-14.6); RBC Distribution Width SD 40.4 fl (35.1-43.9); Red Blood Count 4.45 M/mm3 (4.6-6.2); White Blood Count 6.8 K/mm3 (4.4-11.0)
== END ==
PROVIDERS: PCP Family Medicine; Referring Provider Family Medicine; Visit Provider Family Medicine
DX: D72.810 Lymphocytopenia (principal)
CPT/HCPCS: 36415; 85025

== ENCOUNTER → 2021-05-19 11:18 | Outpatient (CLI) | payer OTHER, SELFPAY ==
[2021-05-19 12:02] LABS: Absolute Lymphocyte Count 0.91 X10^3/uL (0.83-4.51); Basophil# 0.03 X10^3/uL; Basophil% 0.7 % (0-1); Eosinophils% 2.3 % (0-5); Hematocrit 39.4 % (40-54); Hemoglobin 13.5 g/dL (13.0-16.5); Lymphocyte # 0.91 X10^3/ul (0.83-4.51); Lymphocyte % 20.6 % (19-41); Mean Corp Hgb Conc 34.3 g/dL (32-36); Mean Corpuscular Hgb 30.5 pg (27.0-32.0); Mean Corpuscular Volume 88.9 fL (80-94); Mean Platelet Vol. 9.7 fl (6.2-12.0); Monocyte# 0.33 X10^3/uL; Monocyte% 7.5 % (0-10); NRBC Flagged by Analyzer 0 % (0-5); Neutrophil # 3.03 X10^3/uL (2.7-7.7); Neutrophil % 68.7 % (47-70); Platelet Count 278 K/mm3 (150-450); RBC Distribution Width CV 12.8 % (11.6-14.6); RBC Distribution Width SD 41.3 fl (35.1-43.9); Red Blood Count 4.43 M/mm3 (4.6-6.2); White Blood Count 4.4 K/mm3 (4.4-11.0)
[2021-05-19 12:35] LABS: Vitamin B12 489 pg/mL (211-911); Vitamin D,25 Hydroxy 53.8 ng/mL
[2021-05-19 12:37] LABS: PTHIN 36.9 pg/mL (18.4-80.1)
[2021-05-19 13:17] LABS: ALB/GLOB Ratio 1.2 RATIO (0.9-2.4); AST(SGOT) 21 U/L (15-37); Alanine Aminotransfer ALT/SGPT 21 U/L (16-61); Albumin, Serum 3.7 g/dL (3.2-5.0); Alkaline Phosphatase 80 U/L (45-117); Anion Gap 5 (5-15); BUN 18 mg/dL (7-18); BUN/Creat Ratio 18.1 RATIO (10-20); Bilirubin, Direct 0.24 mg/dL (0.00-0.30); Chloride 109 mmol/L (98-107); EST Glomerular Filtration Rate 84 mL/min (>60); Est Glom Filt Rate - Afr Amer 101 mL/min (>60); Ferritin 140 ng/mL (26-388); Globulin 3.1 g/dL (2.2-4.2); Glucose 102 mg/dL (74-106); Iron 72 ug/dL (65-175); Iron Binding Capacity,Total 333 ug/dL (250-450); PERCENT IRON SATURATION 21.6 % (15.0-55.0); Potassium 4.1 mmol/L (3.5-5.1); Protein, Total 6.8 g/dL (6.4-8.2); Sodium Level 139 mmol/L (136-145)
[2021-05-25 19:06] LABS: Vitamin B1, Thiamine 176.6 nmol/L (66.5-200.0)
[2021-05-26 08:08] LABS: Transferrin 264 mg/dL (177-329); Vitamin A, Retinol 48.3 ug/dL (20.1-62.0)
== END ==
PROVIDERS: PCP Family Medicine
DX: Z09 Encounter for follow-up examination after completed treatment for conditions other than malignant neoplasm (principal); Z98.84 Bariatric surgery status; E66.9 Obesity, unspecified; E55.9 Vitamin D deficiency, unspecified; D53.9 Nutritional anemia, unspecified
CPT/HCPCS: 36415; 80053; 82248; 82306; 82607; 82728; 82746; 83540; 83550; 83970; 84425; 84466; 84590; 85025

== ENCOUNTER → 2021-11-05 | Outpatient (CLI) | payer OTHER, SELFPAY ==
[2021-11-05 14:34] LABS: Absolute Lymphocyte Count 1.08 X10^3/uL (0.83-4.51); Absolute Neutrophil Count 3.9 X10^3/uL (2.0-7.7); Basophil# 0.03 X10^3/uL; Basophil% 0.6 % (0-1); Eosinophil# 0.06 X10^3/uL; Eosinophils% 1.1 % (0-5); Hematocrit 41.4 % (40-54); Hemoglobin 14.3 g/dL (13.0-16.5); Lymphocyte # 1.08 X10^3/ul (0.83-4.51); Lymphocyte % 19.9 % (19-41); Mean Corp Hgb Conc 34.5 g/dL (32-36); Mean Corpuscular Volume 89.6 fL (80-94); Mean Platelet Vol. 9.7 fl (6.2-12.0); Monocyte# 0.39 X10^3/uL; Monocyte% 7.2 % (0-10); NRBC Flagged by Analyzer 0 % (0-5); Neutrophil # 3.85 X10^3/uL (2.7-7.7); Neutrophil % 70.8 % (47-70); Platelet Count 267 K/mm3 (150-450); RBC Distribution Width CV 12.8 % (11.6-14.6); RBC Distribution Width SD 41.6 fl (35.1-43.9); Red Blood Count 4.62 M/mm3 (4.6-6.2); White Blood Count 5.4 K/mm3 (4.4-11.0)
[2021-11-05 14:59] LABS: Hemoglobin A1c 5.1 % (3.8-5.6)
[2021-11-05 15:19] LABS: ALB/GLOB Ratio 1.4 RATIO (0.9-2.4); AST(SGOT) 18 U/L (15-37); Alanine Aminotransfer ALT/SGPT 23 U/L (16-61); Alkaline Phosphatase 77 U/L (45-117); Anion Gap 6 (5-15); BUN 20 mg/dL (7-18); BUN/Creat Ratio 19.2 RATIO (10-20); Calcium,Total 8.6 mg/dL (8.5-10.1); Chloride 107 mmol/L (98-107); Cholesterol 148 mg/dL (200); Creatinine, Serum 1.04 mg/dL (0.70-1.30); EST Glomerular Filtration Rate 80 mL/min (>60); Est Glom Filt Rate - Afr Amer 96 mL/min (>60); Globulin 2.9 g/dL (2.2-4.2); Glucose 118 mg/dL (74-106); High Density Lipoprotein 38 mg/dL; Magnesium 2.2 mg/dL (1.6-2.6); PSA,Total- Diagnostic 1.03 ng/mL (0.0-4.0); Protein, Total 6.9 g/dL (6.4-8.2); Sodium Level 141 mmol/L (136-145); Thyroid Stim Hormone (TSH) 1.43 uIU/mL (0.358-3.74); Triglycerides 216 mg/dL; Very Low Density Lipoprotein 43 mg/dL (5-40)
== END | disposition home or self-care (01) ==
PROVIDERS: PCP Family Medicine; Referring Provider Urology; Visit Provider Urology
DX: R73.09 Other abnormal glucose (principal); I10 Essential (primary) hypertension; E78.2 Mixed hyperlipidemia; D72.810 Lymphocytopenia
CPT/HCPCS: 36415; 80053; 80061; 83036; 83735; 84153; 84402; 84403; 84443; 85025

== ENCOUNTER → 2022-08-14 | Outpatient (CLI) | payer OTHER, SELFPAY ==
[2022-08-14 11:31] LABS: Absolute Lymphocyte Count 1.08 X10^3/uL (0.83-4.51); Absolute Neutrophil Count 3.3 X10^3/uL (2.0-7.7); Basophil# 0.02 X10^3/uL; Basophil% 0.4 % (0-1); Eosinophil# 0.09 X10^3/uL; Eosinophils% 1.8 % (0-5); Hemoglobin 14.4 g/dL (13.0-16.5); Lymphocyte # 1.08 X10^3/ul (0.83-4.51); Lymphocyte % 21.6 % (19-41); Mean Corp Hgb Conc 34.3 g/dL (32-36); Mean Corpuscular Hgb 30.8 pg (27.0-32.0); Mean Corpuscular Volume 89.7 fL (80-94); Mean Platelet Vol. 9.8 fl (6.2-12.0); Monocyte# 0.51 X10^3/uL; Monocyte% 10.2 % (0-10); NRBC Flagged by Analyzer 0 % (0-5); Neutrophil # 3.28 X10^3/uL (2.7-7.7); Neutrophil % 65.8 % (47-70); Platelet Count 252 K/mm3 (150-450); RBC Distribution Width CV 12.8 % (11.6-14.6); RBC Distribution Width SD 41.6 fl (35.1-43.9); Red Blood Count 4.68 M/mm3 (4.6-6.2)
[2022-08-14 12:00] LABS: Vitamin B12 668 pg/mL (211-911); Vitamin D,25 Hydroxy 61.8 ng/mL
[2022-08-14 12:03] LABS: ALB/GLOB Ratio 1.4 RATIO (0.9-2.4); AST(SGOT) 15 U/L (15-37); Alanine Aminotransfer ALT/SGPT 16 U/L (16-61); Albumin, Serum 4.1 g/dL (3.2-5.0); Alkaline Phosphatase 82 U/L (45-117); Anion Gap 7 (5-15); BUN 19 mg/dL (7-18); BUN/Creat Ratio 16.8 RATIO (10-20); Calcium,Total 8.9 mg/dL (8.5-10.1); Chloride 107 mmol/L (98-107); Cholesterol 150 mg/dL (200); Creatinine, Serum 1.13 mg/dL (0.70-1.30); EST Glomerular Filtration Rate 72 mL/min (>60); Est Glom Filt Rate - Afr Amer 87 mL/min (>60); Glucose 109 mg/dL (74-106); High Density Lipoprotein 38 mg/dL; Magnesium 1.9 mg/dL (1.6-2.6); Potassium 4.1 mmol/L (3.5-5.1); Protein, Total 7.1 g/dL (6.4-8.2); Sodium Level 142 mmol/L (136-145); Thyroid Stim Hormone (TSH) 1.68 uIU/mL (0.358-3.74); Triglycerides 112 mg/dL; Very Low Density Lipoprotein 22 mg/dL (5-40)
[2022-08-14 12:12] LABS: Hemoglobin A1c 5.2 % (3.8-5.6)
== END | disposition home or self-care (01) ==
LOC: LAB 11:07
PROVIDERS: PCP Family Medicine; Referring Provider Family Medicine; Visit Provider Family Medicine
DX: R73.09 Other abnormal glucose (principal); I10 Essential (primary) hypertension; E78.2 Mixed hyperlipidemia; E53.8 Deficiency of other specified B group vitamins; Z98.84 Bariatric surgery status; D64.9 Anemia, unspecified
CPT/HCPCS: 36415; 80053; 80061; 82306; 82607; 83036; 83735; 84443; 85025

== ENCOUNTER → 2022-12-24 | Outpatient (CLI) | payer OTHER, SELFPAY ==
[2022-12-24 14:26] LABS: PSA,Total - Annual Screen 1.41 ng/mL (0.00-4.00)
== END | disposition home or self-care (01) ==
LOC: LAB 13:25
PROVIDERS: PCP Family Medicine; Referring Provider Urology; Visit Provider Urology
DX: Z12.5 Encounter for screening for malignant neoplasm of prostate (principal); E29.1 Testicular hypofunction
CPT/HCPCS: 36415; 84153; 84403; G0103

== ENCOUNTER → 2024-04-18 | Outpatient (CLI) | payer OTHER, SELFPAY ==
[2024-04-18 09:09] LABS: Hematocrit 38.5 % (40-54); Mean Corp Hgb Conc 33.8 g/dL (32-36); Mean Corpuscular Hgb 30.4 pg (27.0-32.0); Mean Platelet Vol. 9.6 fl (6.2-12.0); Platelet Count 247 K/mm3 (150-450); RBC Distribution Width CV 13.2 % (11.6-14.6); RBC Distribution Width SD 43.2 fl (35.1-43.9); Red Blood Count 4.28 M/mm3 (4.6-6.2); White Blood Count 6.1 K/mm3 (4.4-11.0)
[2024-04-18 10:16] LABS: Anion Gap 8 (5-15); BUN 18 mg/dL (7-18); BUN/Creat Ratio 17.1 RATIO (10-20); Calcium,Total 9.1 mg/dL (8.5-10.1); Chloride 108 mmol/L (98-107); Creatinine, Serum 1.05 mg/dL (0.70-1.30); EST Glomerular Filtration Rate 78 mL/min (>60); Est Glom Filt Rate - Afr Amer 94 mL/min (>60); Glucose 109 mg/dL (74-106); Sodium Level 141 mmol/L (136-145)
== END | disposition home or self-care (01) ==
PROVIDERS: PCP Nurse Practitioner Family; Referring Provider Nurse Practitioner; Visit Provider Nurse Practitioner
DX: E29.1 Testicular hypofunction (principal); Z12.5 Encounter for screening for malignant neoplasm of prostate
CPT/HCPCS: 36415; 80048; 84153; 84403; 85027; G0103

== ENCOUNTER → 2025-06-05 | Outpatient (CLI) | payer OTHER, SELFPAY ==
[2025-06-05 13:45] LABS: PSA,Total - Annual Screen 1.81 ng/mL (0.02-4.00)
== END | disposition home or self-care (01) ==
LOC: LAB 11:42
PROVIDERS: PCP Nurse Practitioner Family; Referring Provider Urology; Visit Provider Urology
DX: E29.1 Testicular hypofunction (principal); Z12.5 Encounter for screening for malignant neoplasm of prostate
CPT/HCPCS: 36415; 84153; 84403; G0103